=== PATIENT | male | born 1975 | race Caucasian/White ===

== ENCOUNTER → 2016-12-15 | Outpatient (CLI) | payer OTHER ==
[2016-03-08 16:51] VITALS: BP 156/80
--- NOTE | 2016-12-15 17:41 | RAD ---
HISTORY: Shortness of breath. CAD. Fatigue. Constipation. Study: Chest two views Comparison: March 06, 2016. Findings: The trachea is midline. The cardiac silhouette is unremarkable. The lungs are clear without focal infiltrate or effusion. The bony thorax is unremarkable. IMPRESSION: 1. No acute cardiopulmonary disease. Reported By:
--- NOTE | 2016-12-15 17:43 | RAD ---
ABDOMINAL RADIOGRAPHS CLINICAL HISTORY: 41-year-old male with shortness of breath, fatigue in constipation. Comparison: ABDOMINAL RADIOGRAPHS JANUARY 19, 2013. Findings: Right lower quadrant baclofen pump and lumbar spinal fusion construct with surgical clips are unchan ged. Evaluation of the abdomen demonstrates a nonobstructive bowel gas pattern with gas and stool through out the colon. No pathological soft tissue mass or calcification can be observed. The bony structu res are grossly intact. IMPRESSION: 1. No evidence for acute abdominal pathology identified. Reported By:
[2016-12-15 17:55] LABS: BASOPHILS % (AUTO) 0.7 % (0.2-1.0); EOSINOPHILS # (AUTO) 0.2 x10^3/uL (0.0-0.2); EOSINOPHILS % (AUTO) 3.6 % (0.9-2.9); HEMATOCRIT 41.5 % (42.0-54.0); HEMOGLOBIN 13.8 g/dL (13.5-18.0); LYMPHOCYTES # (AUTO) 2.1 X10^3/uL (1.3-2.9); LYMPHOCYTES % (AUTO) 43.7 % (21.0-51.0); MEAN CORPUSCULAR HGB CONC 33.1 g/dL (33.0-35.0); MEAN CORPUSCULAR VOLUME 84.5 fL (80.0-100.0); MEAN PLATELET VOLUME 9.9 fL (7.4-11.0); MONOCYTES # (AUTO) 0.4 x10^3/uL (0.3-0.8); MONOCYTES % (AUTO) 8.3 % (0.0-13.0); NEUTROPHILS # (AUTO) 2.2 x10^3/uL (2.2-4.8); NEUTROPHILS % (AUTO) 43.7 % (42.0-75.0); PLATELET COUNT 120 X10^3/uL (150.0-450.0); RED BLOOD COUNT 4.92 X10^6/uL (4.7-6.0); RED CELL DISTRIBUTION WIDTH 14.5 % (11.6-16.5); WHITE BLOOD COUNT 4.9 X10^3/uL (3.6-10.0)
[2016-12-15 18:12] LABS: ALANINE AMINOTRANSFERASE 34 Units/L (12-78); ALBUMIN 3.7 g/dL (3.4-5.0); ALKALINE PHOSPHATASE 78 Units/L (46-116); ASPARTATE AMINO TRANSFERASE 29 Units/L (15-37); BLOOD UREA NITROGEN 14 mg/dL (7-18); CALCIUM 9.5 mg/dL (8.5-10.1); CARBON DIOXIDE 29.6 mmol/L (21-32); CHLORIDE 105 mmol/L (98-107); CREATININE 1.11 mg/dL (0.70-1.30); FREE T4 (FREE THYROXINE) 0.98 ng/dL (0.76-1.46); GLUCOSE 77 mg/dL (65-99); SODIUM 142 mmol/L (136-145); TSH (3RD GENERATION) 1.146 uIU/mL (0.358-3.74); eGFR BLACK RACES > 60 (>60); eGFR NON BLACK RACES > 60 (>60)
== END | disposition home or self-care (01) ==
LOC: RAD 17:00
PROVIDERS: ATTEND Nurse Practitioner Family
DX: R06.02 Shortness of breath (principal); I25.10 Atherosclerotic heart disease of native coronary artery without angina pectoris; R53.83 Other fatigue; K59.09 Other constipation
CPT/HCPCS: 36415; 71020; 74022; 80053; 84439; 84443; 85025; 93005; 93010

== ENCOUNTER 2016-12-25 13:07 | Observation (INO) | payer OTHER ==
[2016-12-25] MEDS ORDERED: NS 1000 ML 1,000 ML IV ONE (13:27)
[2016-12-25] MEDS ORDERED: HumuLIN R SUBCUT PRN (13:27)
--- NOTE | 2016-12-25 13:42 | RAD ---
HISTORY: Weakness. Shortness of breath. Dehydration. Study: Chest two views Comparison: December 15, 2016. Findings: The trachea is midline. The cardiac silhouette is unremarkable. The lungs are clear without focal infiltrate or effusion. The bony thorax is unremarkable. IMPRESSION: 1. No acute cardiopulmonary disease. Reported By:
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
[2016-12-25 14:00] LABS: BASOPHILS # (AUTO) 0.1 X10^3/uL (0.0-0.1); BASOPHILS % (AUTO) 0.9 % (0.2-1.0); EOSINOPHILS # (AUTO) 0.3 x10^3/uL (0.0-0.2); EOSINOPHILS % (AUTO) 4.5 % (0.9-2.9); HEMATOCRIT 41.8 % (42.0-54.0); HEMOGLOBIN 13.9 g/dL (13.5-18.0); LYMPHOCYTES # (AUTO) 2.5 X10^3/uL (1.3-2.9); LYMPHOCYTES % (AUTO) 36.7 % (21.0-51.0); MEAN CORPUSCULAR HGB CONC 33.2 g/dL (33.0-35.0); MEAN CORPUSCULAR VOLUME 84.1 fL (80.0-100.0); MEAN PLATELET VOLUME 9.7 fL (7.4-11.0); MONOCYTES # (AUTO) 0.8 x10^3/uL (0.3-0.8); NEUTROPHILS # (AUTO) 3.1 x10^3/uL (2.2-4.8); NEUTROPHILS % (AUTO) 45.9 % (42.0-75.0); PLATELET COUNT 120 X10^3/uL (150.0-450.0); RED BLOOD COUNT 4.97 X10^6/uL (4.7-6.0); RED CELL DISTRIBUTION WIDTH 14.4 % (11.6-16.5); WHITE BLOOD COUNT 6.7 X10^3/uL (3.6-10.0)
[2016-12-25 14:16] LABS: BLOOD UREA NITROGEN 17 mg/dL (7-18); CALCIUM 10.1 mg/dL (8.5-10.1); CHLORIDE 106 mmol/L (98-107); CREATININE 1.47 mg/dL (0.70-1.30); GLUCOSE 88 mg/dL (65-99); SODIUM 142 mmol/L (136-145); TROPONIN I < 0.02 ng/mL (0-1.5); eGFR BLACK RACES > 60 (>60); eGFR NON BLACK RACES 56 (>60)
[2016-12-25 14:20] LABS: ALANINE AMINOTRANSFERASE 42 Units/L (12-78); ALBUMIN 3.7 g/dL (3.4-5.0); ALKALINE PHOSPHATASE 89 Units/L (46-116); ASPARTATE AMINO TRANSFERASE 29 Units/L (15-37); CKMB % 1.7 % (<4); CREATINE KINASE 151 Units/L (39-308); CREATINE KINASE MB 2.5 ng/mL (0-4.0); TOTAL PROTEIN 7.8 g/dL (6.4-8.2)
[2016-12-25 15:13] LABS: BILIRUBIN,URINE 2+ (NEGATIVE); BLOOD/HEMOGLOBIN,URINE NEGATIVE (NEGATIVE); GLUCOSE, URINE NEGATIVE (NEGATIVE); KETONES,URINE 1+ (NEGATIVE); LEUKOCYTE ESTERASE ,URINE 1+ (NEGATIVE); NITRITES,URINE NEGATIVE (NEGATIVE); PROTEIN,URINE 2+ (NEGATIVE); UROBILINOGEN,URINE 2+ (NORMAL)
[2016-12-25 15:25] LABS: COLOR,URINE BROWN (YELLOW)
[2016-12-25 15:26] LABS: APPEARANCE,URINE CLOUDY (CLEAR); BACTERIA,URINE TRACE /HPF (NEGATIVE); HYALINE CASTS, URINE MODERATE /LPF (NEGATIVE); RBC,URINE NONE SEEN /HPF (NEGATIVE); SQUAMOUS EPITHELIAL CELL,UR FEW /HPF (NEGATIVE)
[2016-12-25] MEDS: NS 1000 ML 1,000 ML IV SCH (16:03)
[2016-12-25] MEDS ORDERED: PREVNAR 13 IM ONE (16:35)
[2016-12-25 17:15] VITALS: BMI 29.5
[2016-12-25 19:51] LABS: CKMB % 1.8 % (<4); CREATINE KINASE 120 Units/L (39-308); CREATINE KINASE MB 2.1 ng/mL (0-4.0); TROPONIN I < 0.02 ng/mL (0-1.5)
[2016-12-25] MEDS ORDERED: SNACK - Diabetic Appropriate PO SCH (20:00)
[2016-12-25] MEDS ORDERED: VALIUM PO PRN (20:21)
[2016-12-25] MEDS ORDERED: ROXICODONE TAB 15 MG PO PRN (20:50)
[2016-12-25] MEDS ORDERED: FLOMAX PO SCH (21:00)
[2016-12-25] MEDS ORDERED: ZOLOFT PO SCH (21:00)
[2016-12-25] MEDS ORDERED: ZOLOFT PO ONE (21:19)
[2016-12-26 02:12] LABS: CKMB % 1.9 % (<4); CREATINE KINASE 108 Units/L (39-308); TROPONIN I < 0.02 ng/mL (0-1.5)
[2016-12-26] MEDS: NS 1000 ML 1,000 ML IV SCH ×2 (06:02→12:30)
[2016-12-26] MEDS ORDERED: PriLOSEC PO SCH ×2 (09:00→12:00)
[2016-12-26] MEDS ORDERED: [UNRECOGNIZED DRUG - OTHER] INJ PRN (12:00)
[2016-12-26] MEDS ORDERED: VALIUM PO PRN (12:00)
[2016-12-26 12:35] VITALS: BP 139/83
[2016-12-26] MEDS ORDERED: DICLOFENAC SODIUM 75 MG PO SCH (17:00)
[2016-12-26] MEDS ORDERED: ZOLOFT PO SCH (21:00)
[2016-12-26] MEDS ORDERED: FLOMAX PO SCH (21:00)
== END 2016-12-26 13:40 | disposition home or self-care (01) ==
LOC: MED/SURG 13:07
PROVIDERS: ADMIT Internal Medicine; ATTEND Internal Medicine
PROC: 3E0234Z Introduction of Serum, Toxoid and Vaccine into Muscle, Percutaneous Approach (ICD-10-PCS; principal; 2016-12-25)
DX: R53.83 Other fatigue (principal); R53.1 Weakness; R00.1 Bradycardia, unspecified; E86.0 Dehydration; R94.31 Abnormal electrocardiogram [ECG] [EKG]; R06.02 Shortness of breath; M51.36 Other intervertebral disc degeneration, lumbar region; E78.2 Mixed hyperlipidemia; K21.9 Gastro-esophageal reflux disease without esophagitis; I10 Essential (primary) hypertension; M13.89 Other specified arthritis, multiple sites; I45.6 Pre-excitation syndrome; R94.4 Abnormal results of kidney function studies; Z23 Encounter for immunization
CPT/HCPCS: 36415; 71020; 80053; 81001; 82550; 82553; 83735; 84484; 85025; 87040; 87086; 93005; 93010; 99218; A4222; 90670; G0378

== ENCOUNTER → 2017-09-21 | Outpatient (CLI) | payer OTHER ==
--- NOTE | 2017-09-22 09:48 | RAD ---
HISTORY: Post-laminectomy syndrome Study: Lumbar spine AP, lateral, spot, obliques, lateral in flexion and extension Comparison: None Findings: The patient is status post L5-S1 fusion with a disc spacer present. The alignment is normal. The alig nment is stable in flexion and extension. The vertebral bodies are of average height. The L1 through L4 disc spaces are preserved. The pedicles are intact. The SI joints are normal. Facet degenerative j oint disease is present at L4-5 and L5-S1. No spondylolysis or spondylolisthesis is identified. The S I joints are normal. IMPRESSION: Postsurgical changes as above Spine stable in flexion and extension Facet degenerative joint disease as described Reported By:
== END | disposition home or self-care (01) | DRG 552 ==
LOC: RAD 18:38
PROVIDERS: ATTEND Anesthesiology Pain Medicine
DX: M96.1 Postlaminectomy syndrome, not elsewhere classified (principal); G89.4 Chronic pain syndrome; M54.16 Radiculopathy, lumbar region; M54.5 Low back pain
CPT/HCPCS: 72110

== ENCOUNTER 2018-07-20 11:48 | Observation (INO) ==
--- NOTE | 2018-07-20 11:58 | DR.CP ---
HPI Time Seen Time Seen by Provider: 07/20/18 11:56 HPI Comment HPI Comment: PATIENT DEVELOP EPIGASTRIC PAIN THAT DID NOT RESPOND TO ANTACIDS. PAIN PROGRESSINVOLVING MID CHEST AND RADIATED TO LEFT NECK.PAIN PRESSURE LIKE. PAIN ASSOCIATED WITH DIAPHORESIS AND SOB. PAIN DID NOT RESPOND TO NITROGLYCERIN. HE BOLUS INDWELLING PAIN PUMP MED AND PAIN DECREASING. Complaint Chief Complaint Doctor Comments: CHEST PAIN. Reviewed Nurses Notes Review: Yes Source History Provided: Patient and Family Member Mode of Arrival Mode of Arrival: EMS Timing Came on: Suddenly Pain: Present Now Duration Duration: Constant Duration: Hours Location Location of Chest Pain: Chest (MID CHEST/EPIGASTRIC AREA.) Chest Pain Radiation Location: Neck Context Onset: At rest Cardiac Risk Factors: Hyperlipidemia, HTN and Diabetes PE Risk Factors: None History of: Aspirin in last 24 hours (BY EMS DURING TRANSPORT.) Prehospital Care: Oxygen, IV, SL Nitro and ASA Quality Quality: Pressure like Severity Severity: Moderate Modifying Factors Worsens: Nothing Impoves: Nothing Associated Signs and Symptoms Associated Signs and Symptoms: Shortness of Breath PMH PMH Past Medical History: Anxiety, Arthritis, Diabetes, Dyslipidemia, GERD, Hypertension, Liver Disease and [place] Past Surgical History: Yes Surgical History: Ortho Surgery and Other Family History Family Medical History: Diabetes Mellitus, Coronary Artery Disease and Hypertension Social History Do you use any recreational Drugs:: No ROS Review of Systems Constitutional: Diaphoresis, Weakness and Fatigue Eyes: No Symptoms Reported ENTM: No Symptoms Reported Respiratoy: Short of Breath Cardiovascular: Chest Pain Gastrointestinal/Abdominal: No Symptoms Reported Genitourinary: No Symptoms Reported Neurological: Weakness Musculoskeletal: Back Pain Integumentary: No Symptoms Reported Hematologic/Lymphatic: No Symptoms Reported Endocrine: No Symptoms Reported Psychiatric: No Symptoms Reported All Other Systems: Reviewed and Negative PE Vitals Vitals: Temperature 98.7 F Pulse Rate 79 Respiratory Rate 14 Blood Pressure [Right Arm] 141/81 Blood Pressure [Left Arm] 120/65 Blood Pressure 137/75 O2 Sat by Pulse Oximetry 95 General Limitations: No Limitations General Appearance: Alert and In No Apparent Distress Head Head Exam: Normal Inspection Eyes Eye exam: Normal Appearance ENT ENT Exam: Normal External Ear Exam Chest Chest Inspection: Normal Inspection and Symmetric Chest Wall Rise Respiratory Respiratory Exam: Normal Lung Sounds Bilat Respiratory Exam: Bilateral: Rhonchi and Lower: Rhonchi Cardiovascular Cardiovascular Exam: Regular Rate and Normal Rhythm Pulse: Normal Edema: Normal Abdominal Exam Abdominal Exam: Normal Inspection, Normal Bowel Sounds, Soft and Tenderness Abdominal Tenderness: Epigastrium and Mild Extremities Extremities Exam: Normal Inspection Back Back Exam: Paraspinal Tenderness Neurologic Neurological Exam: Alert and Oriented X3; negative Motor Sensory Deficit Psychiatric Psychiatric Exam: Normal Affect and Normal Mood Skin Skin Exam: Warm, Dry, Intact and Normal Color MDM Additional Information Additional Information Obtained From: Family Differential Diagnosis Differential Diagnosis: Angina, Chest Wall Pain, CHF, Costochondritis, Myocardial Infarction, Pericarditis, Pleuritis and Pneumothorax COURSE Treatment Treatment: SEE ORDERS. Consultation Consultation Comments: DISCUSS PATIENT WITH DR. EDWARDS. HE WILL ADMIT PATIENT. Education/Counseling Education/Counseling: Patient and Family Educated On: Diagnosis ROR Labs Reviewed Laboratory Results Reviewed?: Yes Result Diagrams: 07/20/18 12:10 07/20/18 12:10 Laboratory: WBC 5.8 X10^3/uL (3.6-10.0) 07/20/18 12:10 RBC 4.51 X10^6/uL (4.7-6.0) L 07/20/18 12:10 Hgb 12.9 g/dL (13.5-18.0) L 07/20/18 12:10 Hct 38.4 % (42.0-54.0) L 07/20/18 12:10 MCV 85.2 fL (80.0-100.0) 07/20/18 12:10 MCH 28.6 pg (27.0-34.0) 07/20/18 12:10 MCHC 33.6 g/dL (33.0-35.0) 07/20/18 12:10 RDW 13.6 % (11.6-16.5) 07/20/18 12:10 Plt Count 109 X10^3/uL (150.0-450.0) L 07/20/18 12:10 MPV 10.0 fL (7.4-11.0) 07/20/18 12:10 Neut % (Auto) 67.0 % (42.0-75.0) 07/20/18 12:10 Lymph % (Auto) 24.0 % (21.0-51.0) 07/20/18 12:10 [place] % (Auto) 6.9 % (0.0-13.0) 07/20/18 12:10 Eos % (Auto) 1.8 % (0.9-2.9) 07/20/18 12:10 Baso % (Auto) 0.3 % (0.2-1.0) 07/20/18 12:10 Neut # (Auto) 3.9 x10^3/uL (2.2-4.8) 07/20/18 12:10 Lymph # (Auto) 1.4 X10^3/uL (1.3-2.9) 07/20/18 12:10 [place] # (Auto) 0.4 x10^3/uL (0.3-0.8) 07/20/18 12:10 Eos # (Auto) 0.1 x10^3/uL (0.0-0.2) 07/20/18 12:10 Baso # (Auto) 0.0 X10^3/uL (0.0-0.1) 07/20/18 12:10 Absolute Nucleated RBC 0.0 /100WBC 07/20/18 12:10 Sodium 138 mmol/L (136-145) 07/20/18 12:10 Corrected Sodium 142 mmol/L (136-145) 07/20/18 12:10 Potassium 4.8 mmol/L (3.5-5.1) 07/20/18 12:10 Chloride 103 mmol/L (98-107) 07/20/18 12:10 Carbon Dioxide 27.7 mmol/L (21-32) 07/20/18 12:10 BUN 16 mg/dL (7-18) 07/20/18 12:10 Creatinine 1.04 mg/dL (0.70-1.30) 07/20/18 12:10 Est GFR (MDRD) Af Amer > 60 (>60) 07/20/18 12:10 Est GFR (MDRD) Non-Af > 60 (>60) 07/20/18 12:10 Glucose 260 mg/dL (65-99) H 07/20/18 12:10 Calcium 9.4 mg/dL (8.5-10.1) 07/20/18 12:10 Corrected Calcium 10.0 mg/dL (8.5-10.1) 07/20/18 12:10 Total Bilirubin 0.20 mg/dL (0.2-1.0) 07/20/18 12:10 AST 32 Units/L (15-37) 07/20/18 12:10 ALT 48 Units/L (12-78) 07/20/18 12:10 Alkaline Phosphatase 110 Units/L (46-116) 07/20/18 12:10 Creatine Kinase 163 Units/L (39-308) 07/20/18 12:10 CK-MB (CK-2) 3.2 ng/mL (0-4.0) 07/20/18 12:10 CK/CKMB % Calc 2.0 % (<4) 07/20/18 12:10 Troponin I < 0.02 ng/mL (0-1.5) 07/20/18 12:10 Total Protein 7.6 g/dL (6.4-8.2) 07/20/18 12:10 Albumin 3.3 g/dL (3.4-5.0) L 07/20/18 12:10 Globulin 4.3 g/dL (2.5-4.5) 07/20/18 12:10 Albumin/Globulin Ratio 0.8 Ratio (1.1-2.1) L 07/20/18 12:10 XRAY XRAY Interpreted by: Radiologist XRAY Findings: REPORT DISCUSS WITH PATIENT AND FAMILY. EKG Rate: 78 [place]: Normal Rhythm: NSR Block: None Hypertrophy: None ST: Normal
[2018-07-20 12:02] VITALS: BMI 30.4
[2018-07-20 12:17] LABS: BASOPHILS % (AUTO) 0.3 % (0.2-1.0); EOSINOPHILS # (AUTO) 0.1 x10^3/uL (0.0-0.2); EOSINOPHILS % (AUTO) 1.8 % (0.9-2.9); HEMATOCRIT 38.4 % (42.0-54.0); HEMOGLOBIN 12.9 g/dL (13.5-18.0); LYMPHOCYTES # (AUTO) 1.4 X10^3/uL (1.3-2.9); MEAN CORPUSCULAR HEMOGLOBIN 28.6 pg (27.0-34.0); MEAN CORPUSCULAR HGB CONC 33.6 g/dL (33.0-35.0); MEAN CORPUSCULAR VOLUME 85.2 fL (80.0-100.0); MONOCYTES # (AUTO) 0.4 x10^3/uL (0.3-0.8); MONOCYTES % (AUTO) 6.9 % (0.0-13.0); NEUTROPHILS # (AUTO) 3.9 x10^3/uL (2.2-4.8); PLATELET COUNT 109 X10^3/uL (150.0-450.0); RED BLOOD COUNT 4.51 X10^6/uL (4.7-6.0); RED CELL DISTRIBUTION WIDTH 13.6 % (11.6-16.5); WHITE BLOOD COUNT 5.8 X10^3/uL (3.6-10.0)
--- NOTE | 2018-07-20 12:20 | RAD ---
HISTORY: Chest pain. Shortness of breath. Study: AP portable chest Comparison: 12/25/2016 Findings: The lungs are clear. The heart size is normal. No acute bony abnormalities are identified. IMPRESSION: 1. No radiographic evidence of acute cardiopulmonary disease or significant change is noted when compared to the prior examination. Reported By:
[2018-07-20 12:32] LABS: BLOOD UREA NITROGEN 16 mg/dL (7-18); CALCIUM 9.4 mg/dL (8.5-10.1); CARBON DIOXIDE 27.7 mmol/L (21-32); CHLORIDE 103 mmol/L (98-107); COR NA(FOR HYPERGLY) 142 mmol/L (136-145); CREATININE 1.04 mg/dL (0.70-1.30); SODIUM 138 mmol/L (136-145); TROPONIN I < 0.02 ng/mL (0-1.5); eGFR NON BLACK RACES > 60 (>60)
[2018-07-20 12:36] LABS: ALANINE AMINOTRANSFERASE 48 Units/L (12-78); ALBUMIN 3.3 g/dL (3.4-5.0); ALKALINE PHOSPHATASE 110 Units/L (46-116); ASPARTATE AMINO TRANSFERASE 32 Units/L (15-37); CREATINE KINASE 163 Units/L (39-308); CREATINE KINASE MB 3.2 ng/mL (0-4.0); TOTAL PROTEIN 7.6 g/dL (6.4-8.2)
[2018-07-20] MEDS: PROTONIX INJ 40 MG VIAL IVP SCH (14:21)
[2018-07-20] MEDS: NS 1000 ML 1,000 ML IV SCH (14:21)
[2018-07-20] MEDS ORDERED: PAIN PUMP CON.INFU SCH (15:23)
[2018-07-20] MEDS ORDERED: ROXICODONE TAB 15 MG PO PRN (15:23)
[2018-07-20] MEDS ORDERED: PREVNAR 13 IM ONE (16:31)
[2018-07-20] MEDS ORDERED: FLUVIRIN IM ONE (16:31)
[2018-07-20] MEDS: HumuLIN R SUBCUT PRN ×2 (17:03→20:53)
[2018-07-20 18:25] LABS: BILIRUBIN,URINE NEGATIVE (NEGATIVE); BLOOD/HEMOGLOBIN,URINE NEGATIVE (NEGATIVE); GLUCOSE, URINE NEGATIVE (NEGATIVE); KETONES,URINE NEGATIVE (NEGATIVE); LEUKOCYTE ESTERASE ,URINE 1+ (NEGATIVE); NITRITES,URINE NEGATIVE (NEGATIVE); PROTEIN,URINE 1+ (NEGATIVE); UROBILINOGEN,URINE 2+ (NORMAL)
[2018-07-20 18:39] LABS: CKMB % 1.5 % (<4); CREATINE KINASE 157 Units/L (39-308); CREATINE KINASE MB 2.4 ng/mL (0-4.0); TROPONIN I < 0.02 ng/mL (0-1.5)
[2018-07-20 18:50] LABS: APPEARANCE,URINE SLIGHTLY HAZY (CLEAR); BACTERIA,URINE TRACE /HPF (NEGATIVE); COLOR,URINE DARK YELLOW (YELLOW); RBC,URINE 0-2 /HPF (NONE SEEN); SQUAMOUS EPITHELIAL CELL,UR FEW /HPF (NEGATIVE)
[2018-07-20 18:51] LABS: HYALINE CASTS, URINE MANY /LPF (NEGATIVE); MUCUS,URINE MANY /HPF (NEGATIVE)
[2018-07-20] MEDS: DICLOFENAC SODIUM 75 MG PO SCH (18:54)
[2018-07-20] MEDS ORDERED: ZOLOFT PO ONE (19:57)
[2018-07-20] MEDS ORDERED: SNACK - Diabetic Appropriate PO SCH (20:00)
[2018-07-20] MEDS ORDERED: FLOMAX PO SCH (21:00)
[2018-07-20] MEDS ORDERED: MILK OF MAGNESIA PO SCH (21:00)
[2018-07-20] MEDS ORDERED: COLACE CAP 100 MG PO SCH ×2 (21:00)
[2018-07-20] MEDS ORDERED: ZOLOFT PO SCH (21:00)
--- NOTE | 2018-07-20 21:28 | RAD ---
HISTORY: 43-year-old male with abdominal distention. Study: Two views of the abdomen. Comparison: Abdominal radiographs. 0050 Findings: Surgical and support devices are stable. Evaluation of the abdomen demonstrates a nonobstructive bowel gas pattern with gas and stool throughout the colon and no radiographic evidence of free intraperitoneal air. No pathological soft tissue mass or calcification can be observed. The bony structures are grossly intact. IMPRESSION: 1. No evidence for acute abdominal pathology identified. Reported By:
[2018-07-21 00:56] LABS: CKMB % 1.5 % (<4); CREATINE KINASE 117 Units/L (39-308); CREATINE KINASE MB 1.8 ng/mL (0-4.0); TROPONIN I < 0.02 ng/mL (0-1.5)
[2018-07-21] MEDS: NS 1000 ML 1,000 ML IV SCH (06:05)
[2018-07-21] MEDS: DICLOFENAC SODIUM 75 MG PO SCH ×2 (06:05→08:02)
[2018-07-21] MEDS: HumuLIN R SUBCUT PRN (06:06)
[2018-07-21 06:08] LABS: BASOPHILS % (AUTO) 0.1 % (0.2-1.0); EOSINOPHILS # (AUTO) 0.3 x10^3/uL (0.0-0.2); EOSINOPHILS % (AUTO) 5.5 % (0.9-2.9); HEMATOCRIT 37.7 % (42.0-54.0); HEMOGLOBIN 12.6 g/dL (13.5-18.0); LYMPHOCYTES % (AUTO) 36.7 % (21.0-51.0); MEAN CORPUSCULAR HEMOGLOBIN 28.8 pg (27.0-34.0); MEAN CORPUSCULAR HGB CONC 33.5 g/dL (33.0-35.0); MEAN CORPUSCULAR VOLUME 85.9 fL (80.0-100.0); MEAN PLATELET VOLUME 10.1 fL (7.4-11.0); MONOCYTES # (AUTO) 0.5 x10^3/uL (0.3-0.8); MONOCYTES % (AUTO) 8.9 % (0.0-13.0); NEUTROPHILS # (AUTO) 2.7 x10^3/uL (2.2-4.8); NEUTROPHILS % (AUTO) 48.8 % (42.0-75.0); PLATELET COUNT 110 X10^3/uL (150.0-450.0); RED BLOOD COUNT 4.38 X10^6/uL (4.7-6.0); RED CELL DISTRIBUTION WIDTH 13.9 % (11.6-16.5); WHITE BLOOD COUNT 5.5 X10^3/uL (3.6-10.0)
[2018-07-21 06:19] LABS: ALANINE AMINOTRANSFERASE 47 Units/L (12-78); ALBUMIN 3.2 g/dL (3.4-5.0); ALKALINE PHOSPHATASE 98 Units/L (46-116); ASPARTATE AMINO TRANSFERASE 31 Units/L (15-37); BLOOD UREA NITROGEN 15 mg/dL (7-18); CALCIUM 9.3 mg/dL (8.5-10.1); CARBON DIOXIDE 34.1 mmol/L (21-32); CHLORIDE 103 mmol/L (98-107); CHOL/HDL RATIO 5.4 (0.0-5.0); CHOLESTEROL 172 mg/dL (0-200); COR CA(FOR HYPOALB) 9.9 mg/dL (8.5-10.1); COR NA(FOR HYPERGLY) 141 mmol/L (136-145); CREATININE 0.92 mg/dL (0.70-1.30); HDL CHOLESTEROL 32 mg/dL (40-60); SODIUM 139 mmol/L (136-145); TOTAL PROTEIN 7.4 g/dL (6.4-8.2); TRIGLYCERIDES 141 mg/dL (0-150); eGFR NON BLACK RACES > 60 (>60)
[2018-07-21] MEDS ORDERED: TYLENOL 325 MG TAB PO PRN (08:01)
[2018-07-21] MEDS: PROTONIX INJ 40 MG VIAL IVP SCH (08:32)
[2018-07-21] MEDS ORDERED: ASPIRIN EC 81 MG PO SCH (09:00)
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
[2018-07-21 14:27] VITALS: BP 120/75
== END 2018-07-21 13:00 | disposition short-term general hospital (02) ==
LOC: MED/SURG 11:48 → ER 11:48 → MED/SURG 14:24
PROVIDERS: ADMIT Internal Medicine; ATTEND Internal Medicine
DX: M54.5 Low back pain; Z97.8 Presence of other specified devices; I45.6 Pre-excitation syndrome; I15.9 Secondary hypertension, unspecified; E78.2 Mixed hyperlipidemia; K59.09 Other constipation; K21.9 Gastro-esophageal reflux disease without esophagitis; E11.65 Type 2 diabetes mellitus with hyperglycemia; Z23 Encounter for immunization; I25.2 Old myocardial infarction; R11.2 Nausea with vomiting, unspecified; R07.2 Precordial pain; R10.13 Epigastric pain; R06.02 Shortness of breath; M19.90 Unspecified osteoarthritis, unspecified site; R51 Headache
CPT/HCPCS: 36415; 71010; 71045; 74000; 74018; 80053; 80061; 81001; 82550; 82553; 83036; 84484; 85025; 90686; 93005; 94760; 96365; 96372; 96374; 99282; 99284; C9113; G0378; J1815; J3490; J7030

== ENCOUNTER 2019-09-21 18:16 | Observation (INO) ==
[2019-09-21] MEDS ORDERED: NITRO-BID OINT 2% UD (E.R. USE ONLY) TOP ONE (18:25)
[2019-09-21] MEDS ORDERED: NITRO-BID OINT 2% Multi-Dose tube ONE (18:31)
--- NOTE | 2019-09-21 18:36 | DR.CP ---
HPI Time Seen Time Seen by Provider: 09/21/19 18:24 PCP Primary Care Physician: ANTON MCKEON HPI Comment HPI Comment: cp , heaviness for over 2 weeks, no n.v feels radiation to left arm- tingling, no diaphoresis, feels sob and dyspnea trying to get in to see cardiology, has hx of ablation for wpw Complaint Chief Complaint Doctor Comments: see above Chief Complaint:: PT. C/O FLUTTERING SENSATION TO CHEST AND CHEST PRESSURE WELL PAIN THAT RADIATES TO LEFT ARM AND TO NECK. PT. STATES HE HAS A TINGLING FEELING TO LEFT ARM. Reviewed Nurses Notes Review: Yes Source History Provided: Patient and EMS Mode of Arrival Mode of Arrival: EMS Timing Onset of Chief Complaint: 09/21/19 Came on: Gradually (ongoing for 2 weeks) Pain: Present Now Duration Duration: Intermittent (intermittent for over 2 weeks) How lon Duration: Weeks Location Location of Chest Pain: Left Chest Pain Radiation Location: Left Shoulder Context Onset: At rest Cardiac Risk Factors: Other (hx ablation for wpw) Prehospital Care: SL Nitro (x 2 by ems) and ASA (325 mg) Quality Quality: Pressure like Severity Severity: Moderate Modifying Factors Worsens: Nothing Impoves: NTG Associated Signs and Symptoms Associated Signs and Symptoms: Shortness of Breath PMH PMH Past Medical History: Yes Past Medical History: Anxiety, Arthritis, Diabetes, Dyslipidemia, GERD, Hypertension, Liver Disease and [place] Past Medical History Comment: WPW Past Surgical History: Yes Surgical History: Ortho Surgery and Other Past Surgical History Comment: CARDIAC ABLATION Family History History of Family Medical Conditions: Yes Family Medical History: Diabetes Mellitus, Coronary Artery Disease and Hypertension Social History Does patient currently use any type of tobacco product: No Have you used tobacco products in the last 12 months: No Type of Tobacco Use: None Does any household member use tobacco: No Alcohol Use: None Do you use any recreational Drugs:: No Lives With: Spouse Lives Where: Home infectious screening In the last 2 months have you had wt loss of >10#?: NO Have you had fever, night sweats or hemotysis?: No Have you traveled outside the country in the last 6 months?: No Isolation: Standard ROS Review of Systems Constitutional: No Symptoms Reported, See HPI, Diaphoresis and Weakness Eyes: No Symptoms Reported ENTM: No Symptoms Reported Respiratoy: No Symptoms Reported, See HPI and Short of Breath Cardiovascular: No Symptoms Reported, See HPI, Chest Pain and Palpitations Gastrointestinal/Abdominal: No Symptoms Reported and See HPI Genitourinary: No Symptoms Reported Neurological: No Symptoms Reported and See HPI Musculoskeletal: No Symptoms Reported and See HPI Integumentary: No Symptoms Reported and See HPI Hematologic/Lymphatic: No Symptoms Reported and See HPI Endocrine: No Symptoms Reported Psychiatric: No Symptoms Reported All Other Systems: Reviewed and Negative PE Vitals Vitals: Temperature 98.6 F Pulse Rate 68 Respiratory Rate 15 Blood Pressure [Right Arm] 118/56 Blood Pressure 170/65 O2 Sat by Pulse Oximetry 96 General Limitations: No Limitations General Appearance: Alert and In No Apparent Distress Head Head Exam: Normal Inspection Eyes Eye exam: Normal Appearance ENT ENT Exam: Normal Exam Chest Chest Inspection: Normal Inspection Respiratory Respiratory Exam: Normal Lung Sounds Bilat Cardiovascular Cardiovascular Exam: Regular Rate and Normal Rhythm Pulse: Normal Edema: Normal Abdominal Exam Abdominal Exam: Normal Inspection, Normal Bowel Sounds and Soft Extremities Extremities Exam: Normal Inspection Back Back Exam: Normal Inspection Neurologic Neurological Exam: Alert and Oriented X3 Psychiatric Psychiatric Exam: Normal Affect and Normal Mood Skin Skin Exam: Warm, Dry, Intact and Normal Color MDM Differential Diagnosis Differential Diagnosis: Myocardial Infarction COURSE Treatment Treatment: ekg interpreted by me 74 hr sinus rhythm cardiac markers neg, plts 134 trop .04, ck 56 bun 19 cr 1.06 bs 148 pt is doing much better removed the nitro paste Reevaluation 1st: Improved Consultation Consultation Comments: dr shoemaker for admission obs telemetry Education/Counseling Education/Counseling: Patient Educated On: Treatment, Diagnosis and Prognosis ROR Labs Reviewed Result Diagrams: 09/21/19 18:50 09/21/19 18:50 Laboratory: WBC 5.8 X10^3/uL (3.6-10.0) 09/21/19 18:50 RBC 5.07 X10^6/uL (4.7-6.0) 09/21/19 18:50 Hgb 14.2 g/dL (13.5-18.0) 09/21/19 18:50 Hct 43.1 % (42.0-54.0) 09/21/19 18:50 MCV 85.1 fL (80.0-100.0) 09/21/19 18:50 MCH 27.9 pg (27.0-34.0) 09/21/19 18:50 MCHC 32.8 g/dL (33.0-35.0) L 09/21/19 18:50 RDW 14.6 % (11.6-16.5) 09/21/19 18:50 Plt Count 134 X10^3/uL (150.0-450.0) L 09/21/19 18:50 MPV 9.3 fL (7.4-11.0) 09/21/19 18:50 Neut % (Auto) 60.6 % (42.0-75.0) 09/21/19 18:50 Lymph % (Auto) 30.0 % (21.0-51.0) 09/21/19 18:50 [place] % (Auto) 7.5 % (0.0-13.0) 09/21/19 18:50 Eos % (Auto) 1.7 % (0.9-2.9) 09/21/19 18:50 Baso % (Auto) 0.2 % (0.2-1.0) 09/21/19 18:50 Neut # (Auto) 3.5 x10^3/uL (2.2-4.8) 09/21/19 18:50 Lymph # (Auto) 1.7 X10^3/uL (1.3-2.9) 09/21/19 18:50 [place] # (Auto) 0.4 x10^3/uL (0.3-0.8) 09/21/19 18:50 Eos # (Auto) 0.1 x10^3/uL (0.0-0.2) 09/21/19 18:50 Baso # (Auto) 0.0 X10^3/uL (0.0-0.1) 09/21/19 18:50 Absolute Nucleated RBC 0.0 /100WBC 09/21/19 18:50 Sodium 136 mmol/L (136-145) 09/21/19 18:50 Corrected Sodium 137 mmol/L (136-145) 09/21/19 18:50 Potassium 3.9 mmol/L (3.5-5.1) 09/21/19 18:50 Chloride 101 mmol/L (98-107) 09/21/19 18:50 Carbon Dioxide 29.4 mmol/L (21-32) 09/21/19 18:50 BUN 19 mg/dL (7-18) H 09/21/19 18:50 Creatinine 1.06 mg/dL (0.70-1.30) 09/21/19 18:50 Est GFR (MDRD) Af Amer > 60 (>60) 09/21/19 18:50 Est GFR (MDRD) Non-Af > 60 (>60) 09/21/19 18:50 Glucose 148 mg/dL (65-99) H 09/21/19 18:50 Calcium 9.7 mg/dL (8.5-10.1) 09/21/19 18:50 Corrected Calcium TNP 09/21/19 18:50 Total Bilirubin 0.40 mg/dL (0.2-1.0) 09/21/19 18:50 AST 25 Units/L (15-37) 09/21/19 18:50 ALT 30 Units/L (12-78) 09/21/19 18:50 Alkaline Phosphatase 86 Units/L (46-116) 09/21/19 18:50 Creatine Kinase 90 Units/L (39-308) 09/21/19 18:50 CK-MB (CK-2) 2.1 ng/mL (0-4.0) 09/21/19 18:50 CK/CKMB % Calc 2.3 % (<4) 09/21/19 18:50 Troponin I < 0.02 ng/mL (0-1.5) 09/21/19 18:50 B-Natriuretic Peptide 7.3 pg/mL (0-79) 09/21/19 18:50 Total Protein 8.4 g/dL (6.4-8.2) H 09/21/19 18:50 Albumin 3.8 g/dL (3.4-5.0) 09/21/19 18:50 Globulin 4.6 g/dL (2.5-4.5) H 09/21/19 18:50 Albumin/Globulin Ratio 0.8 Ratio (1.1-2.1) L 09/21/19 18:50 XRAY XRAY Interpreted by: Radiologist X-ray Results: cxr neg EKG Rate: 74 [place]: Normal Opioid Opioid Risk Tool Age (Delgado box if 16-45): Yes History of Preadolescent Sexual Abuse: No Total: 1 Total Score Risk Category: Low Risk Copyright: Talib JOHNSON predicting aberrant behaviors
--- NOTE | 2019-09-21 19:01 | RAD ---
HISTORYPT. C/O FLUTTERING SENSATION TO CHEST AND CHEST PRESSURE WELL PAIN THAT RADIATES TO LEFT ARM AND TO NECK. PT. STATES HE HAS A TINGLING FEELING TO LEFT ARM.STUDYCHEST, 1 [id number] heart is normal. The pulmonary vessels are normal. No consolidation or effusion is seen. The bones are intact.IMPRESSIONStable chest with no acute abnormality seen.Electronically signed by: BEATRICE FRANCISCO (Sep 21, 2019 18:59:42)
[2019-09-21 19:06] LABS: BASOPHILS % (AUTO) 0.2 % (0.2-1.0); EOSINOPHILS # (AUTO) 0.1 x10^3/uL (0.0-0.2); EOSINOPHILS % (AUTO) 1.7 % (0.9-2.9); HEMATOCRIT 43.1 % (42.0-54.0); HEMOGLOBIN 14.2 g/dL (13.5-18.0); LYMPHOCYTES # (AUTO) 1.7 X10^3/uL (1.3-2.9); MEAN CORPUSCULAR HEMOGLOBIN 27.9 pg (27.0-34.0); MEAN CORPUSCULAR HGB CONC 32.8 g/dL (33.0-35.0); MEAN CORPUSCULAR VOLUME 85.1 fL (80.0-100.0); MEAN PLATELET VOLUME 9.3 fL (7.4-11.0); MONOCYTES # (AUTO) 0.4 x10^3/uL (0.3-0.8); MONOCYTES % (AUTO) 7.5 % (0.0-13.0); NEUTROPHILS # (AUTO) 3.5 x10^3/uL (2.2-4.8); NEUTROPHILS % (AUTO) 60.6 % (42.0-75.0); PLATELET COUNT 134 X10^3/uL (150.0-450.0); RED BLOOD COUNT 5.07 X10^6/uL (4.7-6.0); RED CELL DISTRIBUTION WIDTH 14.6 % (11.6-16.5); WHITE BLOOD COUNT 5.8 X10^3/uL (3.6-10.0)
[2019-09-21 19:28] LABS: BLOOD UREA NITROGEN 19 mg/dL (7-18); CALCIUM 9.7 mg/dL (8.5-10.1); CARBON DIOXIDE 29.4 mmol/L (21-32); CHLORIDE 101 mmol/L (98-107); COR NA(FOR HYPERGLY) 137 mmol/L (136-145); CREATININE 1.06 mg/dL (0.70-1.30); SODIUM 136 mmol/L (136-145); TROPONIN I < 0.02 ng/mL (0-1.5); eGFR NON BLACK RACES > 60 (>60)
[2019-09-21 19:43] LABS: ALANINE AMINOTRANSFERASE 30 Units/L (12-78); ALBUMIN 3.8 g/dL (3.4-5.0); ALKALINE PHOSPHATASE 86 Units/L (46-116); ASPARTATE AMINO TRANSFERASE 25 Units/L (15-37); CKMB % 2.3 % (<4); CREATINE KINASE 90 Units/L (39-308); CREATINE KINASE MB 2.1 ng/mL (0-4.0); TOTAL PROTEIN 8.4 g/dL (6.4-8.2)
[2019-09-21] MEDS ORDERED: HEPARIN SODIUM INJ 5000 UNITS IVP ONE (19:56)
[2019-09-21] MEDS ORDERED: HEPARIN SODIUM INJ 5000 UNITS SC ONE (20:28)
[2019-09-21] MEDS ORDERED: HEPARIN SODIUM INJ 5000 UNITS ONE (20:31)
[2019-09-21 22:06] VITALS: BMI 30.8
[2019-09-22 01:13] LABS: CKMB % 1.3 % (<4); CREATINE KINASE 78 Units/L (39-308); TROPONIN I < 0.02 ng/mL (0-1.5)
[2019-09-22 06:57] LABS: ALANINE AMINOTRANSFERASE 29 Units/L (12-78); ALBUMIN 3.6 g/dL (3.4-5.0); ALKALINE PHOSPHATASE 81 Units/L (46-116); ASPARTATE AMINO TRANSFERASE 23 Units/L (15-37); BLOOD UREA NITROGEN 18 mg/dL (7-18); CALCIUM 9.5 mg/dL (8.5-10.1); CARBON DIOXIDE 30.5 mmol/L (21-32); CHLORIDE 102 mmol/L (98-107); CHOL/HDL RATIO 6.4 (0.0-5.0); CHOLESTEROL 197 mg/dL (0-200); COR NA(FOR HYPERGLY) 138 mmol/L (136-145); CREATINE KINASE 71 Units/L (39-308); CREATINE KINASE MB 1.4 ng/mL (0-4.0); CREATININE 1.16 mg/dL (0.70-1.30); HDL CHOLESTEROL 31 mg/dL (40-60); SODIUM 138 mmol/L (136-145); TRIGLYCERIDES 175 mg/dL (0-150); TROPONIN I < 0.02 ng/mL (0-1.5); eGFR NON BLACK RACES > 60 (>60)
[2019-09-22 07:06] LABS: BASOPHILS % (AUTO) 0.3 % (0.2-1.0); EOSINOPHILS # (AUTO) 0.2 x10^3/uL (0.0-0.2); EOSINOPHILS % (AUTO) 4.1 % (0.9-2.9); HEMATOCRIT 41.8 % (42.0-54.0); HEMOGLOBIN 13.8 g/dL (13.5-18.0); LYMPHOCYTES # (AUTO) 2.5 X10^3/uL (1.3-2.9); MEAN CORPUSCULAR HEMOGLOBIN 28.3 pg (27.0-34.0); MEAN CORPUSCULAR HGB CONC 33.1 g/dL (33.0-35.0); MEAN CORPUSCULAR VOLUME 85.5 fL (80.0-100.0); MEAN PLATELET VOLUME 9.2 fL (7.4-11.0); MONOCYTES # (AUTO) 0.6 x10^3/uL (0.3-0.8); MONOCYTES % (AUTO) 10.7 % (0.0-13.0); NEUTROPHILS # (AUTO) 2.5 x10^3/uL (2.2-4.8); NEUTROPHILS % (AUTO) 41.9 % (42.0-75.0); PLATELET COUNT 129 X10^3/uL (150.0-450.0); RED BLOOD COUNT 4.88 X10^6/uL (4.7-6.0); RED CELL DISTRIBUTION WIDTH 14.3 % (11.6-16.5); WHITE BLOOD COUNT 5.9 X10^3/uL (3.6-10.0)
[2019-09-22] MEDS ORDERED: PROTONIX INJ 40 MG VIAL IVP SCH (09:00)
[2019-09-22 11:21] VITALS: BP 133/84
== END 2019-09-22 11:20 | disposition home or self-care (01) ==
LOC: MED/SURG 18:17 → ER 18:17 → MED/SURG 21:19
PROVIDERS: ADMIT Internal Medicine; ATTEND Obstetrics & Gynecology Obstetrics
DX: K21.9 Gastro-esophageal reflux disease without esophagitis; I49.8 Other specified cardiac arrhythmias; R07.89 Other chest pain; R06.02 Shortness of breath; K76.89 Other specified diseases of liver
CPT/HCPCS: 36415; 71010; 71045; 80053; 80061; 82550; 82553; 83880; 84484; 85025; 85730; 93005; 96365; 96367; 96372; 99284; A4216; C9113; G0378; J1644

== ENCOUNTER 2021-01-08 10:15 | Observation (INO) ==
[2021-01-08] MEDS ORDERED: MORPHINE SULFATE INJ 4 MG IVP PRN (14:02)
[2021-01-08] MEDS ORDERED: NS 1000 ML 1,000 ML IV ONE (14:02)
[2021-01-08 14:26] VITALS: BMI 29.4
[2021-01-08 14:28] LABS: BASOPHILS # (AUTO) 0.1 X10^3/uL (0.0-0.1); BASOPHILS % (AUTO) 0.6 % (0.2-1.0); EOSINOPHILS # (AUTO) 0.1 x10^3/uL (0.0-0.2); EOSINOPHILS % (AUTO) 0.5 % (0.9-2.9); HEMATOCRIT 54.2 % (42.0-54.0); HEMOGLOBIN 17.9 g/dL (13.5-18.0); LYMPHOCYTES # (AUTO) 3.1 X10^3/uL (1.3-2.9); LYMPHOCYTES % (AUTO) 28.2 % (21.0-51.0); MEAN CORPUSCULAR VOLUME 84.6 fL (80.0-100.0); MEAN PLATELET VOLUME 9.2 fL (7.4-11.0); MONOCYTES # (AUTO) 0.9 x10^3/uL (0.3-0.8); NEUTROPHILS # (AUTO) 6.8 x10^3/uL (2.2-4.8); NEUTROPHILS % (AUTO) 62.7 % (42.0-75.0); PLATELET COUNT 147 X10^3/uL (150.0-450.0); RED CELL DISTRIBUTION WIDTH 14.4 % (11.6-16.5); WHITE BLOOD COUNT 10.8 X10^3/uL (3.6-10.0)
[2021-01-08 14:38] LABS: ALANINE AMINOTRANSFERASE 41 Units/L (12-78); ALBUMIN 4.1 g/dL (3.4-5.0); ALKALINE PHOSPHATASE 83 Units/L (46-116); ASPARTATE AMINO TRANSFERASE 35 Units/L (15-37); BLOOD UREA NITROGEN 30 mg/dL (7-18); CALCIUM 9.8 mg/dL (8.5-10.1); CARBON DIOXIDE 31.7 mmol/L (21-32); CHLORIDE 98 mmol/L (98-107); COR NA(FOR HYPERGLY) 139 mmol/L (136-145); CREATININE 1.37 mg/dL (0.70-1.30); SODIUM 135 mmol/L (136-145); TOTAL PROTEIN 8.9 g/dL (6.4-8.2); eGFR NON BLACK RACES 60 (>60)
[2021-01-08] MEDS: PROTONIX INJ 40 MG VIAL IVP SCH ×2 (14:58→20:22)
[2021-01-08] MEDS: NS 1000 ML 1,000 ML IV SCH ×2 (14:58→23:42)
[2021-01-08] MEDS: MERREM VIAL 1,000 MG in NS 100 ML IV + SPIKE MINIBAG* 100 ML IV SCH ×2 (14:58→21:07)
[2021-01-08] MEDS ORDERED: HumuLIN R SUBCUT PRN (18:39)
--- NOTE | 2021-01-08 19:50 | CT ---
EXAM: CT ABDOMEN AND PELVIS WITHOUT INTRAVENOUS CONTRASTHISTORY: Left lower quadrant abdominal pain. Reported "iodine allergy."TECHNIQUE: Spiral axial CT images are obtained through the abdomen and pelvis without the administration of intravenous contrast. Additional coronal and sagittal reformatted images are reconstructed.DOSIMETRY: Total DLP 1210.5 mGycm; CTDI 19.6 mGyCOMPARISON: None available.FINDINGS:GASTROINTESTINAL TRACT: There is no evidence for bowel herniation, bowel obstruction, colitis or diverticulitis. A normal-appearing appendix is seen. Abundant fecal material is seen within the large bowel loops; nonspecific finding; rule out constipation.GENITOURINARY SYSTEM: The kidneys are unremarkable. There is no ureteral calculus or stigmata of obstructive uropathy. The urinary bladder, seminal vesicles, prostate gland appear grossly unremarkable for a non-dedicated exam.CT ABDOMEN: The liver, spleen, pancreas, adrenal glands, gallbladder, aorta, and inferior vena cava are within normal limits for a noncontrast CT scan. There is no intra-abdominal or retroperitoneal lymphadenopathy, free fluid, or free air seen. No abdominal herniation is noted.CT PELVIS: The visualized bony structures are within normal limits. No pelvic sidewall or inguinal lymphadenopathy is seen. No inguinal herniation is noted. Status post ventral hernia repair with mesh in situ; no hernia recurrence seen. No free fluid or free air is seen. A right anterior abdominal wall thoracic lumbar spinal epidural stimulator is noted in situ.LUNG BASES: The lung bases are clear.IMPRESSION:1. No gross acute abnormality seen.2. No evidence for renal stone disease or obstructive uropathy.3. No evidence for acute appendicitis, bowel herniation/obstruction, colitis or diverticulitis seen.4. Abundant fecal material is seen within the large bowel loops; nonspecific finding; rule out constipation.5. No free fluid, free air, mass lesions, or lymphadenopathy seen.Electronically signed by: Joshua Che (Jan 08, 2021 19:48:46)
[2021-01-08] MEDS ORDERED: NS 100 ML IV 100 ML ONE (20:15)
[2021-01-08] MEDS ORDERED: COLACE CAP 100 MG PO ONE (20:18)
[2021-01-08] MEDS: LINZESS PO SCH (20:22)
[2021-01-08] MEDS: SNACK - Diabetic Appropriate PO SCH (20:23)
[2021-01-08] MEDS: COLACE CAP 100 MG PO SCH (20:34)
[2021-01-08] MEDS ORDERED: CITROMA PO ONE (20:56)
--- NOTE | 2021-01-08 21:02 | RAD ---
HISTORYN/VSTUDYCHEST, 1 [facility]COMPARW[facility] 2019FINDINGSSUPPORT DEVICES: None.LUNGS/PLEURA: Reduced lung volumes. No pulmonary edema or focal consolidation. No pleural effusion or space occupying pneumothorax.HEART AND MEDIASTINUM: The cardiac and mediastinum contours appear normal.BONES AND SOFT TISSUES: No acute abnormality.IMPRESSION1. No acute cardiopulmonary abnormality.Electronically signed by: Med Kruse (Jan 08, 2021 20:59:43)
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
[2021-01-09] MEDS ORDERED: NS 100 ML IV 100 ML ONE ×2 (04:37→19:28)
[2021-01-09] MEDS: NS 1000 ML 1,000 ML IV SCH ×2 (05:05→13:09)
[2021-01-09] MEDS: MERREM VIAL 1,000 MG in NS 100 ML IV + SPIKE MINIBAG* 100 ML IV SCH ×3 (05:05→21:03)
[2021-01-09 05:24] LABS: BASOPHILS % (AUTO) 0.5 % (0.2-1.0); EOSINOPHILS # (AUTO) 0.1 x10^3/uL (0.0-0.2); EOSINOPHILS % (AUTO) 1.3 % (0.9-2.9); HEMATOCRIT 47.8 % (42.0-54.0); HEMOGLOBIN 15.7 g/dL (13.5-18.0); LYMPHOCYTES # (AUTO) 3.2 X10^3/uL (1.3-2.9); LYMPHOCYTES % (AUTO) 33.3 % (21.0-51.0); MEAN CORPUSCULAR HEMOGLOBIN 27.9 pg (27.0-34.0); MEAN CORPUSCULAR HGB CONC 32.9 g/dL (33.0-35.0); MEAN CORPUSCULAR VOLUME 84.8 fL (80.0-100.0); MEAN PLATELET VOLUME 9.6 fL (7.4-11.0); MONOCYTES # (AUTO) 0.8 x10^3/uL (0.3-0.8); MONOCYTES % (AUTO) 8.7 % (0.0-13.0); NEUTROPHILS # (AUTO) 5.4 x10^3/uL (2.2-4.8); NEUTROPHILS % (AUTO) 56.2 % (42.0-75.0); PLATELET COUNT 141 X10^3/uL (150.0-450.0); RED BLOOD COUNT 5.64 X10^6/uL (4.7-6.0); RED CELL DISTRIBUTION WIDTH 14.2 % (11.6-16.5); WHITE BLOOD COUNT 9.6 X10^3/uL (3.6-10.0)
[2021-01-09 05:34] LABS: ALANINE AMINOTRANSFERASE 46 Units/L (12-78); ALBUMIN 3.4 g/dL (3.4-5.0); ALKALINE PHOSPHATASE 69 Units/L (46-116); ASPARTATE AMINO TRANSFERASE 42 Units/L (15-37); BLOOD UREA NITROGEN 25 mg/dL (7-18); CALCIUM 8.8 mg/dL (8.5-10.1); CHLORIDE 103 mmol/L (98-107); COR NA(FOR HYPERGLY) 139 mmol/L (136-145); CREATININE 1.28 mg/dL (0.70-1.30); SODIUM 137 mmol/L (136-145); TOTAL PROTEIN 7.5 g/dL (6.4-8.2); eGFR NON BLACK RACES > 60 (>60)
[2021-01-09 05:48] LABS: CARBON DIOXIDE 25.8 mmol/L (21-32)
[2021-01-09] MEDS: PROTONIX INJ 40 MG VIAL IVP SCH ×2 (08:15→20:20)
[2021-01-09] MEDS ORDERED: CITROMA PO ONE (09:00)
[2021-01-09] MEDS ORDERED: METHYLNALTREXONE PO SCH (09:00)
[2021-01-09] MEDS: LINZESS PO SCH (10:06)
[2021-01-09] MEDS: FIBERCON PO SCH ×2 (10:07→20:21)
[2021-01-09] MEDS ORDERED: HumuLIN R SUBCUT PRN (13:13)
--- NOTE | 2021-01-09 17:50 | NOTE.SOAP ---
Soap Note Note for Day of Date of Exam: 01/09/21 Subjective Data Subjective Data: Had several large bowel movements and is doing better. Taking regular diet. Objective Data Temperature: 98.7 F Pulse Rate: 73 Respiratory Rate: 16 Blood Pressure: 125/58 O2 Sat by Pulse Oximetry: 94 Objective Data: BUN to 25 and Creatinine WNL and normal WBC count. Abdomen is soft and benign Assessment Assessment: Abdominal pain related to severe constipation related to dehydration and chronic fentanyl use in pain infusion pump. Plan Plan: Patient ready for discharge from my standpoint.
[2021-01-09] MEDS: SNACK - Diabetic Appropriate PO SCH (20:19)
[2021-01-09] MEDS: COLACE CAP 100 MG PO SCH (20:19)
[2021-01-10] MEDS: NS 1000 ML 1,000 ML IV SCH ×2 (05:47→05:52)
[2021-01-10] MEDS: MERREM VIAL 1,000 MG in NS 100 ML IV + SPIKE MINIBAG* 100 ML IV SCH (05:52)
[2021-01-10 05:58] LABS: ALANINE AMINOTRANSFERASE 44 Units/L (12-78); ALKALINE PHOSPHATASE 74 Units/L (46-116); ASPARTATE AMINO TRANSFERASE 35 Units/L (15-37); BLOOD UREA NITROGEN 15 mg/dL (7-18); CALCIUM 8.8 mg/dL (8.5-10.1); CARBON DIOXIDE 25.7 mmol/L (21-32); CHLORIDE 108 mmol/L (98-107); COR CA(FOR HYPOALB) 9.6 mg/dL (8.5-10.1); COR NA(FOR HYPERGLY) 142 mmol/L (136-145); CREATININE 1.09 mg/dL (0.70-1.30); SODIUM 141 mmol/L (136-145); TOTAL PROTEIN 6.8 g/dL (6.4-8.2); eGFR NON BLACK RACES > 60 (>60)
[2021-01-10 06:04] LABS: BASOPHILS % (AUTO) 0.3 % (0.2-1.0); EOSINOPHILS # (AUTO) 0.2 x10^3/uL (0.0-0.2); EOSINOPHILS % (AUTO) 2.3 % (0.9-2.9); HEMATOCRIT 47.1 % (42.0-54.0); HEMOGLOBIN 15.3 g/dL (13.5-18.0); LYMPHOCYTES # (AUTO) 2.2 X10^3/uL (1.3-2.9); LYMPHOCYTES % (AUTO) 32.5 % (21.0-51.0); MEAN CORPUSCULAR HEMOGLOBIN 27.7 pg (27.0-34.0); MEAN CORPUSCULAR HGB CONC 32.4 g/dL (33.0-35.0); MEAN CORPUSCULAR VOLUME 85.4 fL (80.0-100.0); MEAN PLATELET VOLUME 9.9 fL (7.4-11.0); MONOCYTES # (AUTO) 0.7 x10^3/uL (0.3-0.8); MONOCYTES % (AUTO) 10.7 % (0.0-13.0); NEUTROPHILS # (AUTO) 3.6 x10^3/uL (2.2-4.8); NEUTROPHILS % (AUTO) 54.2 % (42.0-75.0); PLATELET COUNT 113 X10^3/uL (150.0-450.0); RED BLOOD COUNT 5.52 X10^6/uL (4.7-6.0); RED CELL DISTRIBUTION WIDTH 14.2 % (11.6-16.5); WHITE BLOOD COUNT 6.7 X10^3/uL (3.6-10.0)
[2021-01-10] MEDS: FIBERCON PO SCH (08:06)
[2021-01-10] MEDS: LINZESS PO SCH (08:06)
[2021-01-10] MEDS: PROTONIX INJ 40 MG VIAL IVP SCH (08:06)
[2021-01-10 08:34] VITALS: BP 151/87
== END 2021-01-10 10:45 | disposition home or self-care (01) ==
LOC: OBS → ICU 13:47
PROVIDERS: ADMIT Obstetrics & Gynecology Obstetrics; ATTEND Obstetrics & Gynecology Obstetrics
DX: R10.829 Rebound abdominal tenderness, unspecified site; K21.9 Gastro-esophageal reflux disease without esophagitis; R55 Syncope and collapse; E78.2 Mixed hyperlipidemia; I95.89 Other hypotension; T40.2X5A Adverse effect of other opioids, initial encounter; Z20.822 Contact with and (suspected) exposure to COVID-19; K59.03 Drug induced constipation; I10 Essential (primary) hypertension; E11.65 Type 2 diabetes mellitus with hyperglycemia; Z91.81 History of falling; R11.11 Vomiting without nausea

== ENCOUNTER 2022-07-09 19:59 | Observation (INO) ==
[2022-07-09] MEDS ORDERED: APRESOLINE INJ 20 MG VIAL IVP ONE (20:20)
[2022-07-09] MEDS ORDERED: APRESOLINE INJ 20 MG VIAL ONE (20:34)
[2022-07-09 20:41] LABS: BASOPHILS # (AUTO) 0.1 X10^3/uL (0.0-0.1); BASOPHILS % (AUTO) 0.3 % (0.2-1.0); HEMATOCRIT 53.5 % (42.0-54.0); LYMPHOCYTES # (AUTO) 0.9 X10^3/uL (1.3-2.9); LYMPHOCYTES % (AUTO) 5.4 % (21.0-51.0); MEAN CORPUSCULAR HEMOGLOBIN 28.5 pg (27.0-34.0); MEAN CORPUSCULAR HGB CONC 33.6 g/dL (33.0-35.0); MEAN CORPUSCULAR VOLUME 84.7 fL (80.0-100.0); MEAN PLATELET VOLUME 9.2 fL (7.4-11.0); MONOCYTES # (AUTO) 0.9 x10^3/uL (0.3-0.8); MONOCYTES % (AUTO) 5.2 % (0.0-13.0); NEUTROPHILS # (AUTO) 15.5 x10^3/uL (2.2-4.8); NEUTROPHILS % (AUTO) 89.1 % (42.0-75.0); RED BLOOD COUNT 6.32 X10^6/uL (4.7-6.0); RED CELL DISTRIBUTION WIDTH 13.9 % (11.6-16.5); WHITE BLOOD COUNT 17.3 X10^3/uL (3.6-10.0)
--- NOTE | 2022-07-09 20:42 | DR.HTN ---
HPI Time Seen Time Seen by Provider: 07/09/22 20:42 HPI Comment HPI Comment: Brought in by after she checked bp at home and in was 200/100+; she gave him a losartan and rechecked in 30 mins and it was higher; he's been laying around sleeping all day and has had several episodes of n/v; he c/o headache but denies loss of strength/vision as well as ability to walk/talk; he's had two strokes in past, neither with long-standing deficits per the ; he felt fine yesterday but woke like this; he has not been on bp medication in some time because his bp improved after his strokes; no cp, sob, abd pain, palpitations, passing out, cough, fever or chills. COVID-19 Coronavirus risk:travel/contact w/high risk person: No Has patient experienced Coronavirus symptoms: No PMH PMH Past Medical History: Anxiety, Arthritis, Diabetes, Dyslipidemia, GERD, Hypertension, Liver Disease and [place] Past Surgical History: Yes Surgical History: Abdominal Surgery, Ortho Surgery and Other Family History Family Medical History: Diabetes Mellitus, Cancer, Coronary Artery Disease and Hypertension Social History Do you use any recreational Drugs:: No Travel Risk Coronavirus risk:travel/contact w/high risk person: No Has patient experienced Coronavirus symptoms: No ROS Review of Systems Constitutional: No Symptoms Reported Eyes: No Symptoms Reported ENTM: No Symptoms Reported Respiratoy: No Symptoms Reported Cardiovascular: No Symptoms Reported Gastrointestinal/Abdominal: See HPI and Vomiting Genitourinary: No Symptoms Reported Neurological: See HPI and Headache Integumentary: No Symptoms Reported Hematologic/Lymphatic: No Symptoms Reported Endocrine: No Symptoms Reported Psychiatric: No Symptoms Reported PE Vital Signs Vitals: Temperature 99.2 F Pulse Rate 104 Respiratory Rate 18 Blood Pressure [Right Arm] 149/80 Blood Pressure 163/90 O2 Sat by Pulse Oximetry 98 General Limitations: No Limitations General Appearance: Alert and In No Apparent Distress Head Head Exam: Normal Inspection Eyes Eye exam: Normal Appearance ENT ENT Exam: Normal Exam Neck Neck Exam: Normal Inspection Chest Chest Inspection: Normal Inspection Respiratory Respiratory Exam: Normal Lung Sounds Bilat Respiratory Exam: Bilateral: Clear to Auscultation Cardiovascular Cardiovascular Exam: Regular Rate and Normal Rhythm Abdominal Exam Abdominal Exam: Normal Inspection, Normal Bowel Sounds and Soft Extremities Extremities Exam: Normal Inspection Back Back Exam: Normal Inspection Neurologic Neurological Exam: Other (somnolent, follows directions, speech clear but quiet) Speech: Fluid Speech Cranial Nerve Exam: EOM Function (II, III, IV, ): Normal, Facial Sensation (V): Normal, Facial Palsy (VII): Normal and Gag reflex (XI): Normal Motor Strength - LUE: 5/5 Motor Strength - RUE: 5/5 Motor Strength - LLE: 5/5 Motor Strength - RLE: 5/5 Psychiatric Psychiatric Exam: Normal Affect and Normal Mood Skin Skin Exam: Warm, Dry, Intact and Normal Color COURSE Reevaluation 1st: Improved (minimal improvement in bp although mental status has not changed much) 2nd: Improved (more alert, bp still uncontrolled) Consultation Called: : Call Returned: :19 (Dr Richards accepts admission) Critical Care Notes Total Time (mins): 60 Critical Diagnosis: hypertensive encephalopathy, malignant hypertension, tachycardia, nausea/vomiting Critical Interventions: hydralazine iv, lopressor iv, nipride drip labs to r/o mi, end-organ damage ct to r/o recurrent cva discussion re: admission w/Dr Richards ROR Labs Reviewed Laboratory Results Reviewed?: Yes Result Diagrams: 07/09/22 20:30 07/09/22 20:30 Laboratory: WBC 17.3 X10^3/uL (3.6-10.0) H 07/09/22 20:30 RBC 6.32 X10^6/uL (4.7-6.0) H 07/09/22 20:30 Hgb 18.0 g/dL (13.5-18.0) 07/09/22 20: Hct 53.5 % (42.0-54.0) 07/09/22 20:30 MCV 84.7 fL (80.0-100.0) 07/09/22 20:30 MCH 28.5 pg (27.0-34.0) 07/09/22 20: MCHC 33.6 g/dL (33.0-35.0) 07/09/22 20:30 RDW 13.9 % (11.6-16.5) 07/09/22 20: Plt Count 192 X10^3/uL (150.0-450.0) 07/09/22 20: MPV 9.2 fL (7.4-11.0) 07/09/22 20:30 Neut % (Auto) 89.1 % (42.0-75.0) H 07/09/22 20:30 Lymph % (Auto) 5.4 % (21.0-51.0) L 07/09/22 20:30 Tucker % (Auto) 5.2 % (0.0-13.0) 07/09/22 20:30 Eos % (Auto) 0.0 % (0.9-2.9) L 07/09/22 20:30 Baso % (Auto) 0.3 % (0.2-1.0) 07/09/22 20:30 Neut # (Auto) 15.5 x10^3/uL (2.2-4.8) H 07/09/22 20:30 Lymph # (Auto) 0.9 X10^3/uL (1.3-2.9) L 07/09/22 20:30 Tucker # (Auto) 0.9 x10^3/uL (0.3-0.8) H 07/09/22 20:30 Eos # (Auto) 0.0 x10^3/uL (0.0-0.2) 07/09/22 20:30 Baso # (Auto) 0.1 X10^3/uL (0.0-0.1) 07/09/22 20:30 Absolute Nucleated RBC 0.0 /100WBC 07/09/22 20:30 D-Dimer 0.30 ug/ml (0.0-0.57) 07/09/22 20:30 Sodium 138 mmol/L (136-145) 07/09/22 20:30 Corrected Sodium 140 mmol/L (136-145) 07/09/22 20:30 Potassium 4.8 mmol/L (3.5-5.1) 07/09/22 20:30 Chloride 98 mmol/L (98-107) 07/09/22 20:30 Carbon Dioxide 23.4 mmol/L (21-32) 07/09/22 20:30 BUN 19 mg/dL (7-18) H 07/09/22 20:30 Creatinine 1.52 mg/dL (0.70-1.30) H 07/09/22 20:30 Est GFR (MDRD) Af Amer > 60 (>60) 07/09/22 20:30 Est GFR (MDRD) Non-Af 53 (>60) L 07/09/22 20:30 Glucose 190 mg/dL (65-99) H 07/09/22 20:30 Calcium 10.4 mg/dL (8.5-10.1) H 07/09/22 20:30 Corrected Calcium TNP 07/09/22 20:30 Total Bilirubin 0.60 mg/dL (0.2-1.0) 07/09/22 20:30 AST 47 Units/L (15-37) H 07/09/22 20:30 ALT 53 Units/L (12-78) 07/09/22 20:30 Alkaline Phosphatase 81 Units/L (46-116) 07/09/22 20:30 Creatine Kinase 403 Units/L (39-308) H 07/09/22 23:45 Troponin I High Sens 118.4 ng/L (4.0-60.0) H* 07/09/22 23:45 Total Protein 8.8 g/dL (6.4-8.2) H 07/09/22 20:30 Albumin 4.3 g/dL (3.4-5.0) 07/09/22 20: Globulin 4.5 g/dL (2.5-4.5) 07/09/22 20: Albumin/Globulin Ratio 1.0 Ratio (1.1-2.1) L 07/09/22 20:30 Specimen Type Clean catch urine 07/09/22 23:47 Urine Color Yellow (YELLOW) 07/09/22 23:47 Urine Appearance Clear (CLEAR) 07/09/22 23:47 Urine pH 6.0 (5.0 - 8.0) 07/09/22 23:47 Ur Specific [place] 1.020 (1.000-1.030) 07/09/22 23:47 Urine Protein 3+ (NEGATIVE) 07/09/22 23:47 Urine Glucose (UA) 4+ (NEGATIVE) 07/09/22 23:47 Urine Ketones 4+ (NEGATIVE) 07/09/22 23:47 Urine Blood 2+ (NEGATIVE) 07/09/22 23:47 Urine Nitrite Negative (NEGATIVE) 07/09/22 23:47 Urine Bilirubin Negative (NEGATIVE) 07/09/22 23:47 Urine Urobilinogen Normal (NORMAL) 07/09/22 23:47 Ur Leukocyte Esterase Negative (NEGATIVE) 07/09/22 23:47 Urine RBC None seen /HPF (0-3) 07/09/22 23:47 Urine WBC None seen /HPF (0-5) 07/09/22 23:47 Ur Squamous Epith Cells Rare /HPF (NEGATIVE) 07/09/22 23:47 Urine Bacteria Negative /HPF (NEGATIVE) 07/09/22 23:47 Ur Culture Indicated? No/not indicated 07/09/22 23:47 Urine Opiates Screen Negative (NEG=<300) 07/09/22 23:47 Urine Methadone Screen Negative (NEG=<300) 07/09/22 23:47 Ur Barbiturates Screen Negative (NEG=<200) 07/09/22 23:47 Ur Phencyclidine Scrn Negative (NEG=<25) 07/09/22 23:47 Ur Amphetamines Screen Negative (NEG=<1000) 07/09/22 23:47 U Benzodiazepines Scrn Negative (NEG=<200) 07/09/22 23:47 Urine Cocaine Screen Negative (NEG=<300) 07/09/22 23:47 U Marijuana (THC) Screen Negative (NEG=<50) 07/09/22 23:47 SARS-CoV-2 (PCR) Negative (NEGATIVE) 07/09/22 20:59 Influenza Type A (PCR) Negative (NEGATIVE) 07/09/22 20:59 Influenza Type B (PCR) Negative (NEGATIVE) 07/09/22 20:59 RSV (PCR) Negative (NEGATIVE) 07/09/22 20:59 XRAY X-ray Results: ct brain w/o: 1. No intracranial hemorrhage, discernible acute infarction, mass lesions, midline shift, mass effect or hydrocephalus seen. 2. No significant interval change seen. 3. Consider followup evaluation with MRI /MRA imaging for further assessment as clinically warranted. Opioid Opioid Risk Tool Age (Delgado box if 16-45): No History of Preadolescent Sexual Abuse: No Total: 0 Total Score Risk Category: Low Risk Copyright: Talib JOHNSON predicting aberrant behaviors Management Prescription drug monitoring program results: PDMP reviewed with concerns identified (pt received #120 oxycodone 30mg, #60 lorazepam .5mg and hydromorphone powder (?) on 12/2 but uds is negative for all) Discharge Plan Diagnosis Discharge Problem: Encephalopathy, hypertensive, Malignant hypertension, Tachycardia, Altered mental state, Proteinuria, Hematuria Headache Qualifiers: Headache type: other vascular headache Qualified Code(s): G44.1 - Vascular headache, not elsewhere classified Discharge Plan Patient Disposition: 09 ADMITTED INPATIENT Condition: Stable Orders to Discharge Patient Discharge Orders: Discharge (Routine); Ordered 07/10/22 Ordered By: Cristina Ramirez
--- NOTE | 2022-07-09 20:46 | EKG ---
Test Reason : Hypertension Blood Pressure : */* mmHG Vent. Rate : 141 BPM Atrial Rate : 141 BPM P-R Int : 134 ms QRS Dur : 92 ms QT Int : 286 ms P-R-T Axes : 57 88 44 degrees QTc Int : 438 ms Sinus tachycardia Nonspecific ST abnormality Abnormal ECG No previous ECGs available Confirmed by David Zepeda ([id number]) on 07/10/2022 3:19:47 PM Referred By: Confirmed By: David Zepeda
[2022-07-09 21:06] LABS: ALANINE AMINOTRANSFERASE 53 Units/L (12-78); ALBUMIN 4.3 g/dL (3.4-5.0); ALKALINE PHOSPHATASE 81 Units/L (46-116); ASPARTATE AMINO TRANSFERASE 47 Units/L (15-37); BLOOD UREA NITROGEN 19 mg/dL (7-18); CALCIUM 10.4 mg/dL (8.5-10.1); CARBON DIOXIDE 23.4 mmol/L (21-32); CHLORIDE 98 mmol/L (98-107); COR NA(FOR HYPERGLY) 140 mmol/L (136-145); CREATINE KINASE 337 Units/L (39-308); CREATININE 1.52 mg/dL (0.70-1.30); SODIUM 138 mmol/L (136-145); TOTAL PROTEIN 8.8 g/dL (6.4-8.2); eGFR NON BLACK RACES 53 (>60)
[2022-07-09] MEDS ORDERED: LOPRESSOR INJ 5 MG AMP IVP ONE ×2 (21:17→22:26)
[2022-07-09] MEDS ORDERED: LOPRESSOR INJ 5 MG AMP ONE ×2 (21:18→22:30)
--- NOTE | 2022-07-09 21:20 | CT ---
EXAM: HEAD CT WITHOUT INTRAVENOUS CONTRASTHISTORY: Headache. Hypertension.TECHNIQUE: Spiral axial CT images are obtained through the brain without the administration of intravenous contrast. Sagittal and coronal reformatted images are reconstructed.DOSIMETRY: Total DLP 912.24 mGycm; CTDI 48 mGyCOMPARISON: Head CT dated November 21, 2021.FINDINGS:The centrum semiovale, basal ganglia, cerebellum, and brainstem are grossly unremarkable for a noncontrast CT scan.There is no acute intracranial hemorrhage, discernible acute infarction, mass lesion, midline shift, or hydrocephalus seen. No extra-axial mass or abnormal fluid collection is seen.The calvarium is intact. The partially imaged paranasal sinuses, middle ear cavities, and mastoid air cells are clear.IMPRESSION:1. No intracranial hemorrhage, discernible acute infarction, mass lesions, midline shift, mass effect or hydrocephalus seen.2. No significant interval change seen.3. Consider followup evaluation with MRI /MRA imaging for further assessment as clinically warranted.Electronically signed by: Joshua Che (Jul 09, 2022 21:19:45)
[2022-07-09 23:59] LABS: BILIRUBIN,URINE NEGATIVE (NEGATIVE); BLOOD/HEMOGLOBIN,URINE 2+ (NEGATIVE); GLUCOSE, URINE 4+ (NEGATIVE); KETONES,URINE 4+ (NEGATIVE); LEUKOCYTE ESTERASE ,URINE NEGATIVE (NEGATIVE); NITRITES,URINE NEGATIVE (NEGATIVE); PROTEIN,URINE 3+ (NEGATIVE); UROBILINOGEN,URINE NORMAL (NORMAL)
[2022-07-10 00:11] LABS: APPEARANCE,URINE CLEAR (CLEAR); BACTERIA,URINE NEGATIVE /HPF (NEGATIVE); COLOR,URINE YELLOW (YELLOW); RBC,URINE NONE SEEN /HPF (0-3); SQUAMOUS EPITHELIAL CELL,UR RARE /HPF (NEGATIVE)
[2022-07-10] MEDS ORDERED: NITROPRESS 50 MG in D5W 250 ML IV 250 ML IV PRN ×2 (00:18→13:52)
[2022-07-10] MEDS ORDERED: D5W 250 ML IV 250 ML IV ONE (00:31)
[2022-07-10] MEDS ORDERED: TYLENOL 500 MG TAB EXTRA STRENGTH PO STA (01:02)
[2022-07-10] MEDS ORDERED: TYLENOL 500 MG TAB EXTRA STRENGTH PO ONE (01:07)
--- NOTE | 2022-07-10 01:50 | EKG ---
Test Reason : Tachycardia Blood Pressure : */* mmHG Vent. Rate : 92 BPM Atrial Rate : 92 BPM P-R Int : 134 ms QRS Dur : 100 ms QT Int : 344 ms P-R-T Axes : 30 86 56 degrees QTc Int : 425 ms Normal sinus rhythm Normal ECG When compared with ECG of 09-JUL-2022 20:44, (Unconfirmed) Vent. rate has decreased BY [address] elevation has replaced ST depression in Inferior leads Confirmed by David Zepeda (4) on 07/10/2022 3:18:43 PM Referred By: Confirmed By: David Zepeda
[2022-07-10] MEDS ORDERED: NovoLIN R (or HumuLIN R) SUBCUT PRN (02:11)
[2022-07-10] MEDS ORDERED: ZOFRAN INJ 4 MG VIAL IVP PRN (02:11)
[2022-07-10 04:39] VITALS: BMI 27.8
[2022-07-10 05:09] LABS: BASOPHILS % (AUTO) 0.2 % (0.2-1.0); HEMATOCRIT 53.5 % (42.0-54.0); HEMOGLOBIN 17.8 g/dL (13.5-18.0); LYMPHOCYTES # (AUTO) 1.2 X10^3/uL (1.3-2.9); MEAN CORPUSCULAR HEMOGLOBIN 27.9 pg (27.0-34.0); MEAN CORPUSCULAR HGB CONC 33.4 g/dL (33.0-35.0); MEAN CORPUSCULAR VOLUME 83.6 fL (80.0-100.0); MEAN PLATELET VOLUME 9.6 fL (7.4-11.0); MONOCYTES # (AUTO) 1.3 x10^3/uL (0.3-0.8); MONOCYTES % (AUTO) 7.8 % (0.0-13.0); NEUTROPHILS # (AUTO) 14.6 x10^3/uL (2.2-4.8); RED CELL DISTRIBUTION WIDTH 14.1 % (11.6-16.5); WHITE BLOOD COUNT 17.2 X10^3/uL (3.6-10.0)
[2022-07-10 05:22] LABS: ALANINE AMINOTRANSFERASE 43 Units/L (12-78); ALBUMIN 4.2 g/dL (3.4-5.0); ALKALINE PHOSPHATASE 76 Units/L (46-116); ASPARTATE AMINO TRANSFERASE 38 Units/L (15-37); BLOOD UREA NITROGEN 24 mg/dL (7-18); CALCIUM 10.5 mg/dL (8.5-10.1); CARBON DIOXIDE 25.2 mmol/L (21-32); CHLORIDE 100 mmol/L (98-107); COR NA(FOR HYPERGLY) 139 mmol/L (136-145); CREATINE KINASE 425 Units/L (39-308); CREATININE 1.42 mg/dL (0.70-1.30); SODIUM 138 mmol/L (136-145); TOTAL PROTEIN 8.6 g/dL (6.4-8.2); eGFR NON BLACK RACES 57 (>60)
--- NOTE | 2022-07-10 05:56 | EKG ---
Test Reason : htn Blood Pressure : */* mmHG Vent. Rate : 109 BPM Atrial Rate : 109 BPM P-R Int : 130 ms QRS Dur : 100 ms QT Int : 318 ms P-R-T Axes : 57 92 54 degrees QTc Int : 428 ms Sinus tachycardia Rightward axis Borderline ECG When compared with ECG of 10-JUL-2022 01:49, (Unconfirmed) No significant change was found Confirmed by David Zepeda (4) on 07/10/2022 3:18:31 PM Referred By: Confirmed By: David Zepeda
[2022-07-10] MEDS: LOPRESSOR TAB 50 MG PO SCH ×2 (08:43→20:14)
[2022-07-10] MEDS ORDERED: NovoLIN R (or HumuLIN R) SC PRN (10:01)
[2022-07-10] MEDS: COLACE CAP 100 MG PO SCH ×3 (10:23→21:05)
[2022-07-10] MEDS: ACTOS PO SCH (10:24)
[2022-07-10] MEDS: DIOVAN TAB 160 MG PO SCH (10:24)
[2022-07-10] MEDS: ROCEPHIN VIAL 2 GRAMS 2 G in NS 100 ML IV 100 ML IV SCH (10:25)
[2022-07-10] MEDS: GLUCOPHAGE XR 24-HR PO SCH ×2 (10:25→20:14)
[2022-07-10] MEDS: ASPIRIN PO SCH (10:25)
[2022-07-10] MEDS: GOLYTELY or GAVILYTE or Equivalent PO SCH (10:25)
--- NOTE | 2022-07-10 13:07 | RAD ---
HISTORYConstipationSTUDYAbdomen series with chest four viewsCOMPARISONCT abdomen January 08, 2021FINDINGSAP chest: No acute findings.Abdomen series: Supine and upright views demonstrate unremarkable gas pattern. There is no evidence for obstruction or pneumoperitoneum. Calcifications in the right abdomen are present. There is no evidence for organ enlargement, ascites or abdominal mass. Surgical fusion findings in the lumbosacral spine.IMPRESSIONNo acute intestinal abnormality identified. Calcifications right abdomen are nonspecific and may represent bowel artifacts. No intrarenal stones were described on CT study of December,.Electronically signed by: MATTHIEU PETERSON (Jul 10, 2022 13:05:12)
[2022-07-10] MEDS: TYLENOL 500 MG TAB EXTRA STRENGTH PO PRN (17:16)
[2022-07-10] MEDS: OXYCONTIN 30 MG PO SCH ×2 (17:19→20:27)
[2022-07-10] MEDS: MILK OF MAGNESIA PO SCH (20:14)
[2022-07-10] MEDS ORDERED: COLACE CAP 100 MG PO SCH (21:00)
[2022-07-11 05:12] LABS: BASOPHILS % (AUTO) 0.3 % (0.2-1.0); LYMPHOCYTES % (AUTO) 15.8 % (21.0-51.0); MEAN CORPUSCULAR HEMOGLOBIN 27.7 pg (27.0-34.0); MEAN CORPUSCULAR HGB CONC 32.8 g/dL (33.0-35.0); MEAN CORPUSCULAR VOLUME 84.6 fL (80.0-100.0); MEAN PLATELET VOLUME 9.3 fL (7.4-11.0); MONOCYTES # (AUTO) 1.2 x10^3/uL (0.3-0.8); MONOCYTES % (AUTO) 9.1 % (0.0-13.0); NEUTROPHILS # (AUTO) 9.6 x10^3/uL (2.2-4.8); NEUTROPHILS % (AUTO) 74.8 % (42.0-75.0); RED BLOOD COUNT 6.51 X10^6/uL (4.7-6.0); RED CELL DISTRIBUTION WIDTH 14.7 % (11.6-16.5); WHITE BLOOD COUNT 12.9 X10^3/uL (3.6-10.0)
[2022-07-11 05:24] LABS: ALANINE AMINOTRANSFERASE 44 Units/L (12-78); ALKALINE PHOSPHATASE 71 Units/L (46-116); ASPARTATE AMINO TRANSFERASE 38 Units/L (15-37); BLOOD UREA NITROGEN 33 mg/dL (7-18); CALCIUM 10.2 mg/dL (8.5-10.1); CARBON DIOXIDE 26.5 mmol/L (21-32); CHLORIDE 101 mmol/L (98-107); COR NA(FOR HYPERGLY) 139 mmol/L (136-145); CREATININE 1.39 mg/dL (0.70-1.30); SODIUM 139 mmol/L (136-145); TOTAL PROTEIN 8.4 g/dL (6.4-8.2); eGFR NON BLACK RACES 58 (>60)
[2022-07-11] MEDS: COLACE CAP 100 MG PO SCH ×3 (05:31→21:10)
[2022-07-11] MEDS ORDERED: LR 1,000 ML IV 1,000 ML IV ONE (06:26)
--- NOTE | 2022-07-11 06:36 | EKG ---
Test Reason : hypotension Blood Pressure : */* mmHG Vent. Rate : 99 BPM Atrial Rate : 99 BPM P-R Int : 140 ms QRS Dur : 96 ms QT Int : 348 ms P-R-T Axes : 47 94 48 degrees QTc Int : 446 ms Normal sinus rhythm Rightward axis Borderline ECG When compared with ECG of 10-JUL-2022 05:48, No significant change was found Confirmed by David Zepeda (4) on 07/13/2022 8:03:02 AM Referred By: Confirmed By: David Zepeda
[2022-07-11] MEDS: ACTOS PO SCH (08:28)
[2022-07-11] MEDS: GLUCOPHAGE XR 24-HR PO SCH ×2 (08:28→20:32)
[2022-07-11] MEDS: ASPIRIN PO SCH (08:28)
[2022-07-11] MEDS: PLAVIX PO SCH (08:28)
[2022-07-11] MEDS: ROCEPHIN VIAL 2 GRAMS 2 G in NS 100 ML IV 100 ML IV SCH (08:29)
[2022-07-11] MEDS: DIOVAN TAB 160 MG PO SCH (08:51)
[2022-07-11] MEDS: OXYCONTIN 30 MG PO SCH (08:52)
[2022-07-11] MEDS: LOPRESSOR TAB 50 MG PO SCH (08:52)
[2022-07-11] MEDS ORDERED: ATIVAN TAB 0.5 MG PO PRN (10:20)
[2022-07-11] MEDS ORDERED: OXYCONTIN 30 MG PO PRN (10:22)
[2022-07-11] MEDS: GOLYTELY or GAVILYTE or Equivalent PO SCH (10:33)
[2022-07-11] MEDS: DOPAMINE IV PREMIX 400 MG/250 ML 400 MG/250 ML BAG IV PRN ×2 (10:52→23:34)
[2022-07-11] MEDS: CELEXA PO SCH (12:51)
[2022-07-11] MEDS: TYLENOL 500 MG TAB EXTRA STRENGTH PO PRN (19:00)
[2022-07-11] MEDS: MILK OF MAGNESIA PO SCH (20:31)
[2022-07-12 05:19] LABS: BASOPHILS % (AUTO) 0.3 % (0.2-1.0); EOSINOPHILS # (AUTO) 0.1 x10^3/uL (0.0-0.2); EOSINOPHILS % (AUTO) 1.3 % (0.9-2.9); HEMATOCRIT 48.1 % (42.0-54.0); HEMOGLOBIN 15.9 g/dL (13.5-18.0); LYMPHOCYTES # (AUTO) 3.1 X10^3/uL (1.3-2.9); LYMPHOCYTES % (AUTO) 30.8 % (21.0-51.0); MEAN CORPUSCULAR HEMOGLOBIN 27.9 pg (27.0-34.0); MEAN CORPUSCULAR HGB CONC 33.2 g/dL (33.0-35.0); MEAN CORPUSCULAR VOLUME 84.1 fL (80.0-100.0); MEAN PLATELET VOLUME 9.5 fL (7.4-11.0); MONOCYTES # (AUTO) 0.9 x10^3/uL (0.3-0.8); MONOCYTES % (AUTO) 9.4 % (0.0-13.0); NEUTROPHILS # (AUTO) 5.8 x10^3/uL (2.2-4.8); NEUTROPHILS % (AUTO) 58.2 % (42.0-75.0); RED BLOOD COUNT 5.71 X10^6/uL (4.7-6.0); RED CELL DISTRIBUTION WIDTH 14.2 % (11.6-16.5)
[2022-07-12] MEDS: COLACE CAP 100 MG PO SCH ×3 (05:33→21:00)
[2022-07-12 05:36] LABS: ALANINE AMINOTRANSFERASE 53 Units/L (12-78); ALBUMIN 3.4 g/dL (3.4-5.0); ALKALINE PHOSPHATASE 86 Units/L (46-116); ASPARTATE AMINO TRANSFERASE 36 Units/L (15-37); BLOOD UREA NITROGEN 44 mg/dL (7-18); CALCIUM 9.2 mg/dL (8.5-10.1); CHLORIDE 99 mmol/L (98-107); COR NA(FOR HYPERGLY) 136 mmol/L (136-145); CREATININE 1.39 mg/dL (0.70-1.30); SODIUM 135 mmol/L (136-145); TOTAL PROTEIN 7.2 g/dL (6.4-8.2); eGFR NON BLACK RACES 58 (>60)
[2022-07-12] MEDS: ROCEPHIN VIAL 2 GRAMS 2 G in NS 100 ML IV 100 ML IV SCH (08:15)
[2022-07-12] MEDS: CELEXA PO SCH (08:16)
[2022-07-12] MEDS: TYLENOL 500 MG TAB EXTRA STRENGTH PO PRN (08:16)
[2022-07-12] MEDS: ACTOS PO SCH (08:16)
[2022-07-12] MEDS: GLUCOPHAGE XR 24-HR PO SCH ×2 (08:16→20:54)
[2022-07-12] MEDS: PLAVIX PO SCH (08:16)
[2022-07-12] MEDS: ASPIRIN PO SCH (08:17)
[2022-07-12] MEDS ORDERED: NS 1,000 ML IV 1,000 ML IV ONE (09:20)
[2022-07-12] MEDS: NS 1,000 ML IV 1,000 ML IV SCH ×2 (09:49→20:56)
[2022-07-12] MEDS: GOLYTELY or GAVILYTE or Equivalent PO SCH (09:51)
[2022-07-12] MEDS: DOPAMINE IV PREMIX 400 MG/250 ML 400 MG/250 ML BAG IV PRN ×2 (11:06→11:52)
[2022-07-12] MEDS: MILK OF MAGNESIA PO SCH (20:54)
[2022-07-13] MEDS: NS 1,000 ML IV 1,000 ML IV SCH ×2 (02:48→10:51)
[2022-07-13 05:22] LABS: BASOPHILS % (AUTO) 0.4 % (0.2-1.0); EOSINOPHILS # (AUTO) 0.2 x10^3/uL (0.0-0.2); EOSINOPHILS % (AUTO) 4.5 % (0.9-2.9); HEMATOCRIT 43.9 % (42.0-54.0); HEMOGLOBIN 14.3 g/dL (13.5-18.0); LYMPHOCYTES # (AUTO) 1.7 X10^3/uL (1.3-2.9); LYMPHOCYTES % (AUTO) 34.6 % (21.0-51.0); MEAN CORPUSCULAR HEMOGLOBIN 27.7 pg (27.0-34.0); MEAN CORPUSCULAR HGB CONC 32.5 g/dL (33.0-35.0); MEAN CORPUSCULAR VOLUME 85.3 fL (80.0-100.0); MEAN PLATELET VOLUME 9.5 fL (7.4-11.0); MONOCYTES # (AUTO) 0.4 x10^3/uL (0.3-0.8); MONOCYTES % (AUTO) 8.1 % (0.0-13.0); NEUTROPHILS # (AUTO) 2.5 x10^3/uL (2.2-4.8); NEUTROPHILS % (AUTO) 52.4 % (42.0-75.0); RED BLOOD COUNT 5.14 X10^6/uL (4.7-6.0); RED CELL DISTRIBUTION WIDTH 13.8 % (11.6-16.5); WHITE BLOOD COUNT 4.8 X10^3/uL (3.6-10.0)
[2022-07-13 05:37] LABS: ALANINE AMINOTRANSFERASE 42 Units/L (12-78); ALKALINE PHOSPHATASE 67 Units/L (46-116); ASPARTATE AMINO TRANSFERASE 25 Units/L (15-37); BLOOD UREA NITROGEN 25 mg/dL (7-18); CALCIUM 8.9 mg/dL (8.5-10.1); CARBON DIOXIDE 32.6 mmol/L (21-32); CHLORIDE 104 mmol/L (98-107); COR CA(FOR HYPOALB) 9.7 mg/dL (8.5-10.1); CREATININE 1.04 mg/dL (0.70-1.30); SODIUM 141 mmol/L (136-145); TOTAL PROTEIN 6.2 g/dL (6.4-8.2); eGFR NON BLACK RACES > 60 (>60)
[2022-07-13] MEDS: COLACE CAP 100 MG PO SCH ×3 (05:39→21:06)
[2022-07-13] MEDS: LINZESS PO SCH (08:16)
[2022-07-13] MEDS: ASPIRIN PO SCH (08:17)
[2022-07-13] MEDS: PLAVIX PO SCH (08:17)
[2022-07-13] MEDS: ROCEPHIN VIAL 2 GRAMS 2 G in NS 100 ML IV 100 ML IV SCH (08:17)
[2022-07-13] MEDS: CELEXA PO SCH (08:17)
[2022-07-13] MEDS ORDERED: RELISTOR SUBCUT SCH (09:00)
[2022-07-13] MEDS: GOLYTELY or GAVILYTE or Equivalent PO SCH (10:52)
[2022-07-13] MEDS: GLUCOPHAGE XR 24-HR PO SCH ×2 (11:06→20:29)
[2022-07-13] MEDS: ACTOS PO SCH (11:06)
[2022-07-13] MEDS: LOVENOX INJ 40 MG SYR SC SCH (11:06)
--- NOTE | 2022-07-13 12:30 | RAD ---
HISTORYSPINE, DM, HTN HYPERTENSIONSTUDYCHEST, PA/LAT ADULTCOMPARISONJune 2020FINDINGSThe trachea is midline. The cardiac silhouette is unremarkable. The lungs are clear without focal infiltrate or effusion. The bony thorax is unremarkable.IMPRESSIONNo acute cardiopulmonary disease.Electronically signed by: NAGA ALAN (Jul 13, 2022 12:29:15)
[2022-07-13] MEDS: PATIENT'S HOME MEDICATION PO SCH (13:02)
[2022-07-13] MEDS: MILK OF MAGNESIA PO SCH (20:26)
[2022-07-14] MEDS: NS 1,000 ML IV 1,000 ML IV SCH ×3 (05:08→11:00)
[2022-07-14] MEDS: COLACE CAP 100 MG PO SCH ×2 (05:08→15:54)
[2022-07-14] MEDS: LOVENOX INJ 40 MG SYR SC SCH (09:52)
[2022-07-14] MEDS: LINZESS PO SCH (09:53)
[2022-07-14] MEDS: ROCEPHIN VIAL 2 GRAMS 2 G in NS 100 ML IV 100 ML IV SCH (09:53)
[2022-07-14] MEDS: GLUCOPHAGE XR 24-HR PO SCH (09:54)
[2022-07-14] MEDS: ACTOS PO SCH (09:54)
[2022-07-14] MEDS: CELEXA PO SCH (09:54)
[2022-07-14] MEDS: PLAVIX PO SCH (09:55)
[2022-07-14] MEDS: ASPIRIN PO SCH (09:55)
[2022-07-14] MEDS: PATIENT'S HOME MEDICATION PO SCH (10:00)
[2022-07-14] MEDS: GOLYTELY or GAVILYTE or Equivalent PO SCH (12:06)
[2022-07-14] MEDS ORDERED: NORVASC TAB 2.5 MG PO SCH (14:00)
--- NOTE | 2022-07-14 16:07 | VAS ---
HISTORY: Concern for carotid artery stenosis. Carotid atherosclerosis.EXAM: BILATERAL DOPPLER CAROTID ULTRASOUND EXAMTechnique: Multiple hare scale and color flow Doppler images of the right and left carotid arterial system were obtained.The vertebral arterial system was evaluated as well.Findings:Nonocclusive color flow Doppler is seen throughout the right and left carotid arterial system. No hemodynamically significant internal carotid arterial stenosis is seen based on velocity criteria. There is mild bilateral carotid atherosclerosis and mixed plaque formation of the bilateral carotid bulbs and ICAs with associated intimal thickening but without sonographic evidence for any other high-grade stenosis (>70%) or occlusion of the carotid arteries.The right and left vertebral artery demonstrate antegrade flow.IMPRESSION:Abnormally elevated velocities are seen in the left CCA in the 50-69% stenosis range.Mild bilateral carotid atherosclerosis and mixed atherosclerotic plaque formation of the bilateral carotid bulbs and [in both] ICAs with [id number] associated carotid intimal thickening but without sonographic evidence for any other high-grade stenosis or occlusion of the carotid arteries, based on Doppler velocity criteria.Appropriate, antegrade, vertebral arterial flow.Peak right ICA velocity: 95 centimeter/seconds.Peak right CCA velocity: 81 centimeter/seconds.Peak left ICA velocity: 103 centimeter/seconds.Peak left CCA velocity: 142 centimeter/seconds.Right ICA to CCA ratio: 1.7.Left ICA to CCA ratio: 0.90.Electronically signed by: ASTON NATION III (Jul 14, 2022 16:06:15)
[2022-07-14 16:18] VITALS: BP 126/78
[2022-07-14] MEDS ORDERED: NORVASC TAB 2.5 MG ONE (16:24)
== END 2022-07-14 17:30 | disposition home or self-care (01) ==
LOC: ER 19:59 → INTOOBSV 07-10 02:11 → ICU 07-10 02:11
PROVIDERS: ADMIT Obstetrics & Gynecology Obstetrics; ATTEND Obstetrics & Gynecology Obstetrics